=== PATIENT | male | born 1945 | race Caucasian/White ===

== ENCOUNTER 2020-11-19 07:30 | Outpatient (REF) | payer MEDICARE, MEDICAID, SELFPAY ==
[2020-11-19 08:36] LABS: Bilirubin Small (Negative); Blood Large (Negative); Clarity Cloudy (Clear); Glucose Negative (Negative); Ketones Trace mg/dL (Negative); Leukocyte Esterase Negative (Negative); Nitrite Negative (Negative); Specific Gravity 1.025 (1.005-1.025); pH 6.5 (5-8)
[2020-11-19 08:38] LABS: C & S Indicated? Yes; RBC >50 HPF (0-2)
== END 2020-11-19 07:31 | disposition home or self-care (01) ==
LOC: LBN 07:30
PROVIDERS: PCP Family Medicine; Visit Provider Family Medicine
DX: R31.9 Hematuria, unspecified (principal)
CPT/HCPCS: 81003; 81015; 87086

== ENCOUNTER 2020-11-23 19:12 | Outpatient (REF) | payer SELFPAY ==
[2020-11-23 16:23] LABS: HCT 27.4 % (40.0-50.0); MCHC 32.8 % (32.0-36.0); MCV 97.5 fL (80-95); MPV 9.5 fL (8.0-11.0); Platelet Count 310 10^3/uL (130-400); RBC 2.81 10^6/uL (4.36-5.78); RDW 13.2 % (11.8-14.1); RDW-SD 47.5 fL; WBC 8.78 10^3/uL (4.4-10.8)
[2020-11-23 16:41] LABS: Anion Gap 8.5 mmol/L (3-11); BUN 19 mg/dL (7-18); CO2 26.5 mmol/L (21.0-32.0); CREATININE 1.2 mg/dL (0.70-1.30); Calcium 8.6 mg/dL (8.5-10.1); Chloride 101 mmol/L (98-107); Estimated GFR 59.51 (mL/min/1.73m2); Glucose 102 mg/dL (74-106); Sodium 136 mmol/L (136-145); TSH 0.51 uIU/mL (0.36-3.74)
== END 2020-11-23 19:13 | disposition home or self-care (01) ==
LOC: LBN 19:12
PROVIDERS: PCP Family Medicine; Visit Provider Family Medicine
DX: E03.9 Hypothyroidism, unspecified (principal); R68.89 Other general symptoms and signs
CPT/HCPCS: 80048; 85027; 84443

== ENCOUNTER 2021-01-09 20:27 | Outpatient (REF) | payer MEDICARE, MEDICAID, SELFPAY ==
[2021-01-12 07:09] LABS: COVID-19 RT-PCR Result Not Detected ((See Note))
== END 2021-01-09 20:28 | disposition home or self-care (01) ==
LOC: NCHCN 20:27
PROVIDERS: PCP Family Medicine; Visit Provider Family Medicine
DX: Z20.822 Contact with and (suspected) exposure to COVID-19 (principal)
CPT/HCPCS: U0003